=== PATIENT | male | born 1960 | race Caucasian/White ===

== ENCOUNTER 2018-12-25 09:26 | Day surgery (SDC) | payer BC ==
[~2018-12-25 09:26] MED LIST: Lactated Ringers 1,000 ML IV SCH; Sodium Chloride 0.9% 10 ML Syringe FLUSH PRN
[2018-12-25] MEDS ORDERED: Propofol 200 MG/20 ML SDV ONE ×2 (11:19→12:07)
[2018-12-25] MEDS ORDERED: fentaNYL 100 MCG/2 ML SDV ONE (11:19)
--- NOTE | 2018-12-25 16:56 | OR ---
PREOPERATIVE DIAGNOSIS: Screening colonoscopy. POSTOPERATIVE DIAGNOSES: Moderate sigmoid diverticulosis, tiny rectal polyp removed. PROCEDURE PROPOSED: Total flexible colonoscopy. PROCEDURE DONE: Total flexible colonoscopy with polypectomy x1. INDICATION: This is a 58-year-old gentleman who comes in for colonic surveillance. His last examination was 10 years ago. He denies any symptomatology and he has a negative family history for colon cancer. TECHNIQUE: The patient brought to the endoscopy suite, placed in left lateral decubitus position. He was sedated per [employer] with propofol. The flexible video colonoscope was then passed transanally and under visualization advanced to the cecum. Examination revealed a normal ascending, transverse, descending colon. The sigmoid colon revealed rather moderate amount of diverticulosis, and at 10 cm from anal verge, there was a tiny polyp removed with 2 bites of the cold biopsy forceps and submitted for pathologic examination. The remainder of the rectum was normal. The scope was then withdrawn. The patient tolerated procedure well. FINAL IMPRESSION: 1. Sigmoid diverticulosis. 2. Tiny rectal polyp at 10 cm, removed. PLAN: He will be sent a letter with pathology report. If this is a hyperplastic nodule, I feel that he is good for another 10 years. If it is adenomatous, he should have a 5-year followup exam. SCM: 12/25/2018 12:20:54 MODL: 12/25/2018 16:48:15 /[id number]
== END 2018-12-25 13:23 | disposition home or self-care (01) ==
LOC: VM.SDS 09:26
PROVIDERS: ATTEND Surgery
DX: Z12.11 Encounter for screening for malignant neoplasm of colon (principal); K62.1 Rectal polyp; K57.30 Diverticulosis of large intestine without perforation or abscess without bleeding; G47.33 Obstructive sleep apnea (adult) (pediatric); K21.9 Gastro-esophageal reflux disease without esophagitis; Z79.82 Long term (current) use of aspirin; Z79.899 Other long term (current) drug therapy
CPT/HCPCS: 45380; J2704; J3010; J7120